=== PATIENT | female | born 1985 | race Hispanic/Latino ===

== ENCOUNTER 2024-06-03 12:20 | Emergency (ER) | payer BC, SELFPAY ==
[2024-06-03 12:26] VITALS: BP 135/79
--- NOTE | 2024-06-03 12:35 | ED.GENMED ---
ED Provider Triage
<Rama Plascencia PA-C - Last Filed: 06/03/24 12:35>
-
Patient seen by provider in Triage?: Seen in Triage
38 y/o F
no pmh\\here wtih dizzines this morning when s he woke up
Feels off balance and like the room is spinning. She has no headache. She feels the symptoms are little bit better than they were when she woke
History of Present Illness
<Rama Plascnecia PA-C - Last Filed: 06/03/24 12:35>
General
Chief Complaint: Dizziness
Time Seen by Provider: 06/03/24 13:34
<Rohith Flaherty PA-C - Last Filed: 06/03/24 16:03>
General
Source: patient
Exam Limitations: none
History of Present Illness
History of Present Illness:
38-year-old otherwise healthy female presents complaining of the onset of dizziness this morning. She woke up with the symptoms. She describes the room spinning with associated mild pressure in her head. No double vision or loss of vision. No
associated neck pain. No unilateral numbness or weakness. She is accompanied by her sister who was diagnosed with MS. There are 2 other people in her family that have MS. Symptoms just started today. She notes recent congestion. No fevers or
rash. No chest pain shortness of breath or vomiting. No other complaints at this time
Phy Exam
<Rohith Flaherty PA-C - Last Filed: 06/03/24 16:03>
Physical Exam
Physical Exam:
General: Well-appearing female no acute respiratory distress
HEENT: Normocephalic pupils equal round reactive to light extraocular motions intact. No obvious nystagmus TMs normal
Heart: Regular rate rhythm no murmurs
Lungs: Clear no wheeze
Neurologic exam: Alert and oriented x 3 finger-nose xprf-ej-[id number] intact conversing appropriate without facial asymmetry dysarthria or aphasia. Alayna-Hallpike does reproduce dizziness when turning head to the right.
Extremities: No cyanosis
Course
<Rama Plascencia PA-C - Last Filed: 06/03/24 12:35>
Orders/Labs/Results
Orders:
Orders
06/03/24 12:32
Meclizine [Antivert] 25 mg PO NOW STA
Test Result ONCE
06/03/24 12:45
COVID-19 Antigen Urgent
Source: Nasal Swab
Complete Blood Count/With Diff Urgent
Comprehensive Metabolic Panel Urgent
HCG, Serum Qualitative Screen Urgent
06/03/24 13:46
CT Head W/o Iv Contrast Urgent
Comment:
Reason For Exam: dizzy
PT Consult [Pt Eval And Treat] Urgent
Treatment: vestibular eval
Activity Level: Ambulate
06/03/24 15:28
Orthostatic VS- Treatment ONCE
06/03/24 15:34
NEUROLOGY CONSULT Urgent
Consulting Provider: Jabari Bautista
Was physician already notified: Yes
Reason for consult: dizziness
06/03/24 15:55
Rizatriptan Orally Disintegrat [Maxalt Felt Carbonizer (Orally Disintegrating)] 10 mg PO ONCE ONE
Abnormal Lab Results
06/03/24
12:45
WBC 4.6 L 10^3/uL
(4.8-10.8)
Hct 35.5 L %
(37.0-47.0)
MPV 10.7 H fL
(7.4-10.4)
Creatinine 0.5 L mg/dL
(0.6-1.0)
AST 50 H U/L
(14-36)
ALT 39 H U/L
(0-35)
Alkaline Phosphatase 175 H U/L
(38-126)
06/03/24 12:45
06/03/24 12:45
Vital Signs
Initial and Last Documented VS:
Initial Vital Signs
Temp Pulse Resp BP Pulse Ox
98.4 F 71 18 135/79 100
06/03/24 12:26 06/03/24 12:26 06/03/24 12:26 06/03/24 12:26 06/03/24 12:26
Last Documented Vital Signs
Temp Pulse Resp BP Pulse Ox
98.4 F 70 18 135/79 99
06/03/24 12:26 06/03/24 14:30 06/03/24 14:30 06/03/24 12:26 06/03/24 14:30
<Rohith Flaherty PA-C - Last Filed: 06/03/24 16:03>
Orders/Labs/Results
Orders:
Orders
06/03/24 12:32
Meclizine [Antivert] 25 mg PO NOW STA
Test Result ONCE
06/03/24 12:45
COVID-19 Antigen Urgent
Source: Nasal Swab
Complete Blood Count/With Diff Urgent
Comprehensive Metabolic Panel Urgent
HCG, Serum Qualitative Screen Urgent
06/03/24 13:46
CT Head W/o Iv Contrast Urgent
Comment:
Reason For Exam: dizzy
PT Consult [Pt Eval And Treat] Urgent
Treatment: vestibular eval
Activity Level: Ambulate
06/03/24 15:28
Orthostatic VS- Treatment ONCE
06/03/24 15:34
NEUROLOGY CONSULT Urgent
Consulting Provider: Jabari Bautista
Was physician already notified: Yes
Reason for consult: dizziness
06/03/24 15:55
Rizatriptan Orally Disintegrat [Maxalt Felt Carbonizer (Orally Disintegrating)] 10 mg PO ONCE ONE
Abnormal Lab Results
06/03/24
12:45
WBC 4.6 L 10^3/uL
(4.8-10.8)
Hct 35.5 L %
(37.0-47.0)
MPV 10.7 H fL
(7.4-10.4)
Creatinine 0.5 L mg/dL
(0.6-1.0)
AST 50 H U/L
(14-36)
ALT 39 H U/L
(0-35)
Alkaline Phosphatase 175 H U/L
(38-126)
06/03/24 12:45
06/03/24 12:45
Vital Signs
Initial and Last Documented VS:
Initial Vital Signs
Temp Pulse Resp BP Pulse Ox
98.4 F 71 18 135/79 100
06/03/24 12:26 06/03/24 12:26 06/03/24 12:26 06/03/24 12:26 06/03/24 12:26
Last Documented Vital Signs
Temp Pulse Resp BP Pulse Ox
98.4 F 70 18 135/79 99
06/03/24 12:26 06/03/24 14:30 06/03/24 14:30 06/03/24 12:26 06/03/24 14:30
<Rohith Flaherty PA-C - Last Filed: 06/03/24 16:03>
MDM/Problems Addressed
Differential Diagnosis Includes:
Dizziness. Consider vertigo versus labyrinthitis versus electrolyte abnormality. CT pending. Check labs. Will consult physical therapy for vestibular eval
<Rohith Flaherty PA-C - Last Filed: 06/03/24 16:03>
*Critical Care Note
Total Time (30-74mins, 75-104mins- exclusive of procedures): Not Applicable
<Rohith Flaherty PA-C - Last Filed: 06/03/24 16:03>
Update Note
Update Note:
Patient seen and evaluated by neurology as well as physical therapy. Physical therapy not able to elicit significant amount of vertigo or dizziness. Seen by neurology who feels that this is more BPPV. Will discharge home with vestibular therapy
script and meclizine.
ED Attending Note
<Rama Plascencia PA-C - Last Filed: 06/03/24 12:35>
-
Portions of this chart may have been created with voice recognition software.� Occasional wrong word or��sound alike� substitutions may have occurred due to the inherent limitations of voice recognition software.
Discharge Plan
Departure
Patient Disposition: Home (Routine Discharge)
Date of Disposition: 06/03/24
Time of Disposition: 16:00
Patient with high blood pressure during this ER visit?: No
Discharge Problem:
Vertigo
Instructions: Vertigo (a Type of Dizziness) (DC)
Prescriptions:
New
meclizine 25 mg tablet
25 mg PO TID PRN (Reason: dizziness) Qty: 10 0RF
Referrals:
Ceci Altamirano CRNP [Family Provider] -
Activity Restrictions/Additional Instructions:
Urgency use meclizine if needed for dizziness. Return here for worsening symptoms otherwise follow-up with your doctor. Consider vestibular rehab for dizziness
Interventions
Interventions:
*Risk Screen - Suicide Last Done: 06/03/24 12:29
*General Assessment Last Done: 06/03/24 12:29
*Neglect/Abuse Screening Last Done: 06/03/24 12:29
ED- Fall Risk Assessment Last Done: 06/03/24 13:26
*ED COVID-19 Vaccine History Last Done: 06/03/24 12:33
ED- Neurological Assessment Last Done: 06/03/24 13:26
ED- Cardiac Assessment Last Done: 06/03/24 13:26
ED Swallowing Screen Last Done: 06/03/24 13:26
Discharge Date and Time
Print Language: UPPER SORBIAN
[2024-06-03 13:06] LABS: % Basophils 0.4 % (0-2); % Eosinophils 0.4 % (0-6); % Immature Granulocytes 0.4 % (0-0.5); % Lymphocytes 30.5 % (20.5-51.1); % Neutrophils 61.3 % (42.2-75.2); Absolute Lymphocytes 1.4 10^3/uL (1.2-3.4); Absolute Monocytes 0.3 10^3/uL (0.1-0.6); Absolute Neutrophils 2.8 10^3/uL (1.4-6.5); Hematocrit 35.5 % (37.0-47.0); Mean Corp Hgb Conc. 33.8 g/dL (33.0-37.0); Mean Corpuscular Volume 82.8 fL (81.0-99.0); Mean Platelet Volume 10.7 fL (7.4-10.4); Nucleated Red Blood Cells % 0 %; Platelet Count 163 10^3/uL (130-400); Red Blood Cell Count 4.29 10^6/uL (4.20-5.40); Red Cell Dist. Width 13.4 % (11.5-14.5); White Blood Cell Count 4.6 10^3/uL (4.8-10.8)
[2024-06-03 13:17] LABS: COVID-19 Antigen Negative (Negative)
[2024-06-03 13:18] LABS: HCG, Serum Qualitative Screen Negative
[2024-06-03 13:20] LABS: ALT (SGPT) 39 U/L (0-35); AST (SGOT) 50 U/L (14-36); Albumin 4.2 g/dl (3.5-5.0); Alkaline Phosphatase 175 U/L (38-126); Blood Urea Nitrogen 12 mg/dl (7-17); Calcium 8.5 mg/dl (8.4-10.2); Carbon Dioxide 25 mmol/L (22-30); Chloride 106 mmol/L (98-107); Glucose 84 mg/dl (70-99); Potassium 4.1 mmol/L (3.5-5.1); Sodium 141 mmol/L (135-145); Total Bilirubin 0.4 mg/dl (0.2-1.3); Total Protein 7.1 g/dl (6.3-8.2); eGFR > 60.00
[2024-06-03 13:26] VITALS: BMI 30.9
[2024-06-03] MEDS: ANTIVERT 25 MG PO (13:29)
--- NOTE | 2024-06-03 15:38 | CON.NEURO ---
Neuro Assessment/Plan
Assessment
Acute onset dizziness
Differential diagnosis includes BPPV involving the right labyrinth, migraine with aura
The patient's longstanding recurrent headaches suggest a migrainous etiology. The patient's 4-month history of sense of if bending forward suggested a vertiginous etiology
Plan
Provide rizatriptan due to patient's mild headache and persistent mild symptoms
Continue vestibular exercises
Meclizine as needed
Consider as outpatient initiation of amitriptyline for head discomfort
Continue vitamin D replacement
Will follow as needed.
Consultation
Order
Date of Consultation: 06/03/24
Requesting Provider: Emergency department provider
Reason for Consult: Vertigo
Subjective/Objective
Subjective Data
Date of Service: June 03, 2024
Right-Handed
Previous episodes every other week have been with bending forwards since 01/2024 lasting for few moments, no nausea.
Walking on the way to bathroom in AM. Feels internal spinning and jittery. Also experiencing nausea. Also patient felt difficulty with spelling and comprehend. Worse with bending forward.
Symptoms have improved, can reproduce with movement to the right. Physical therapy manipulation today, no improvement. Medications in the ED has improved symptoms. Started to have headache in past few minutes. Headaches 2-3x/week usually. Also
headaches with menses, may last 2 days. Acetaminophen previously. Typical continuous photosensitivity. Headache worsen with loud sounds.
Objective Data
Vital Signs
Temp Pulse Resp BP Pulse Ox
36.9 C 70 18 135/79 99
06/03/24 12:26 06/03/24 14:30 06/03/24 14:30 06/03/24 12:26 06/03/24 14:30
Lab Results
06/03/24 12:45
06/03/24 12:45
Sodium 141 mmol/L (135-145) 11/26/24 12:45
Potassium 4.1 mmol/L (3.5-5.1) 06/03/24 12:45
BUN 12 mg/dl (7-17) 06/03/24 12:45
Glucose 84 mg/dl (70-99) 06/03/24 12:45
Calcium 8.5 mg/dl (8.4-10.2) 06/03/24 12:45
Patient Allergies
No Known Allergies Allergy (Unverified 06/03/24 12:29)
Review of Systems
-
History Source: Patient
All other systems: Reviewed and negative
EENT: Tinnitis (Chronic); Negative Hearing Loss or Swallowing Difficulty
Respiratory: Negative Trouble Breathing
Cardiac: Negative Chest Pain
Abdomen/GI: Negative Incontinence of Stool
Genitourinary: Negative Incontinence
Musculoskeletal: Negative Back Pain or Neck Pain
Neuro: Dizzy and Headache
Physical Exam
-
General: No Apparent Distress and Appears Stated Age
Eyes: OU Absent Papilledema, Round OU, [place] Conjunctivae and No Ptosis
HEENT: Anicteric and Moist Mucous Membranes
Neck: Full Range of Motion
Respiratory: No Dyspnea
Cardiac: No JVD
GI: Non-distended
Skin: Unremarkable
Extremities: No Clubbing, No Cyanosis and No Edema
Psych: Intact Judgement/Insight
Extended Neurological Exam
Mood & Affect: Mood Unremarkable and Affect Unremarkable
Attention Span & Concentration: Awake, Alert, Interactive and No Difficulty with 2 Step Request
Memory: Unremarkable
Tremor: Hand Tremor Absent and Head Tremor Absent
Speech: Quality Unremarkable and Quantity Unremarkable
Cranial Nerve II: Left Eye: Pupillary Reactivity Unremarkable, Pupillary Size Unremarkable and Visual Cantu Intact
Cranial Nerve II: Right Eye: Pupillary Reactivity Unremarkable, Pupillary Size Unremarkable and Visual Cantu Intact
Cranial Nerves III, IV, : Extraocular Movement: Extraocular Movement Full in all Directions; Negative Nystagmus with Extreme Gaze to Left or Nystagmus with Extreme Gaze to Right
Cranial Nerve VII: Facial Symmetry: Normal Facial Symmetry
Cranial Nerve VIII: Hearing: Unremarkable Hearing to Normal Conversational Volume and Other (Normal hearing to rubbing fingers; negative hints testing)
Cranial Nerves IX, X: Palate Movement: Palate Elevation Symmetric
Cranial Nerve XI: Shoulder Shrug: Unremarkable
Cranial Nerve XII: Tongue Protusion: Midline
Muscle Strength, Overall: Full Throughout
Muscle Bulk & Tone: Bulk Unremarkable and Tone Unremarkable
Pronator Drift: No Drift in Upper Extremities
Deep Tendon Reflexes: Unremarkable Throughout
Touch Sensation: Unremarkable
Coordination: [id number] Testing Unremarkable
Babinski Sign: Absent Bilaterally
Data Reviewed
-
Labs: Report Reviewed
Reviewed with: Nurse Practioner and Patient
Old Records: Summarized
Past History
Past History
ED Past Medical History: Other (pancreatic cysts, low iron level, vitamin D deficiency)
ED Past Surgical History: Cholecystectomy, Gynecological () and Other (weight loss surgery, wrist cyst)
Social History
Tobacco: Non-smoker
Alcohol: Occasional
Drug: Marijuana
Personal:
Living: with family
Employment: Employed
Family History
Family History: Other (reviewed and non-contributory except for MS in multiple family members)
[2024-06-03 16:06] VITALS: BP 113/53
[2024-06-03 16:08] VITALS: BP 125/67
[2024-06-03 16:09] VITALS: BP 127/76
[2024-06-03 16:11] VITALS: BP 113/53; BP 125/67; BP 127/76; PULSE 62; PULSE 65; PULSE 75
[2024-06-03] MEDS: MAXALT MLT (ORALLY DISINTEGRATING) 10 MG PO (16:16)
== END 2024-06-03 16:20 | disposition home or self-care (01) ==
LOC: EMR 12:20
PROVIDERS: Physician Assistant; CONSULT PHYSICIAN Psychiatry & Neurology Neurology; EMERGENCY PHYSICIAN Emergency Medicine; FAMILY PHYSICIAN Nurse Practitioner Family
DX: R42 Dizziness and giddiness (principal); Z90.49 Acquired absence of other specified parts of digestive tract
CPT/HCPCS: 99284; 70450; 80053; 84703; 85025; 87811

== ENCOUNTER 2025-01-15 20:21 | Emergency (ER) | payer BC, SELFPAY ==
[2025-01-15 20:35] VITALS: BP 133/84
--- NOTE | 2025-01-15 23:21 | ED.GENMED ---
History of Present Illness
General
Chief Complaint: Musculo-Skeletal Complaint
Time Seen by Provider: 01/15/25 23:21
History of Present Illness
History of Present Illness:
TIME OF INITIAL EVALUATION
- 11:30 PM
REVIEW OF OLD RECORDS
- The patient is otherwise fairly healthy. She was seen here in May 2024 diagnosed with vertigo seen by neurology at that time.
Note:
CHIEF COMPLAINT(S)
Neck pain radiating to the arm with associated numbness and weakness.
HISTORY OF PRESENT ILLNESS
The patient is a 39-year-old female who presents with neck pain that began approximately six weeks ago. The pain was localized to the posterior aspect of the neck, primarily on the right side, and occasionally extended into the right shoulder.
Initially, there was no preceding trauma. Two weeks after the onset of symptoms, the patient consulted her primary care physician and was prescribed a five-day course of a Medrol Dose Pack (methylprednisolone) and instructed to take acetaminophen.
The patient reported partial relief towards the end of the steroid course. Subsequently, she visited an urgent care facility, where cervical spine radiography was performed, and she was prescribed a muscle relaxant. The combination of steroids and
muscle relaxants provided temporary relief.
The neck pain resolved but was soon followed by a new onset of shooting pain radiating down the right arm, accompanied by numbness and tingling sensations. The patient currently experiences worsening neck pain and reports progressive weakness,
particularly when the arm enters a state of numbness. She denies any recent fever or bowel or bladder dysfunction. The patient has also tried physical therapy.
EXTERNAL RECORDS REVIEWED
A cervical spine X-ray was performed at an urgent care facility.
REVIEW OF SYSTEMS
- Musculoskeletal: Radiating neck pain to the arm, weakness in the right arm
- Neurological: Numbness and tingling in the right arm
- General: No recent fevers reported
PHYSICAL EXAM
- Neurological Exam: Radial, median, and ulnar nerves appear intact; however, subjective reports of weakness, particularly during episodes of numbness, were noted. Sensation is intact
- General: Well appearing but appears to be somewhat uncomfortable
- HEENT: Moist oral mucosa
- Cardiovascular: No murmurs, normal heart rate, regular rhythm, No chest wall tenderness
- Pulmonary: No respiratory distress, breath sounds are clear and equal
- Abdomen: Soft with no peritoneal signs, no tenderness
- Psychiatric: Appropriate mental status, normal insight and judgement
- Extremities: Decreased active range of motion of the right upper extremity related to pain at the posterior neck
- Skin: No rash, no lesions
PLAN
- Administer a toradol (ketorolac tromethamine) injection as a non-narcotic anti-inflammatory treatment.
- Offer a short course of Percocet (oxycodone/acetaminophen) for immediate pain relief.
- Provide patient with a soft cervical collar to alleviate symptoms associated with neck heaviness.
- Recommend resuming a course of steroid therapy with methylprednisolone.
- Encourage patient to follow up with spine specialists and offer referrals.
- Advise continued consultation with the primary care physician for consideration of MRI if symptoms persist or worsen.
DIFFERENTIAL DIAGNOSIS
The Differential Diagnosis includes, in no particular order and is not limited to:
1. Cervical radiculopathy
2. Cervical spinal stenosis
3. Herniated cervical disc
4. Cervical spondylosis
5. Brachial plexopathy
6. Thoracic outlet syndrome
7. Multiple sclerosis
8. Peripheral neuropathy
9. Myelopathy
10. Lyme disease
RADIOLOGY
- No clear indication for imaging at this time
EKG
- Not indicated
LABS
- Not indicated
UPDATE
-SUMMARY OF ENCOUNTER
The patient was seen in the emergency department for neck pain radiating to the arm with associated numbness and weakness. The patients symptoms are suspected to be due to a pinched nerve. Management in the emergency department included
administering a toradol (ketorolac) injection for pain relief and prescribing a short course of Percocet (oxycodone/acetaminophen) for immediate pain management. A higher dose steroid treatment with prednisone is also prescribed to reduce
inflammation. The plan involves continuing to manage symptoms while consulting spine specialists for further evaluation if necessary.
PLAN
Administer a toradol (ketorolac tromethamine) injection as a non-narcotic anti-inflammatory treatment. Prescribe a short course of Percocet (oxycodone/acetaminophen) for immediate pain relief. Provide a prescription for prednisone at a higher dose
than the previous Medrol Dose Pack. Encourage follow-up with spine specialists, including potential consultations with a neurosurgeon or health promotion specialist. Recommend ongoing monitoring of symptoms and possible consideration of MRI if symptoms
persist or worsen.
FOLLOW-UP INSTRUCTIONS
Contact the office of local spine specialists, including neurosurgeons and orthopedic doctors, to schedule follow-up appointments. Discuss past treatment attempts and ongoing symptoms with these specialists to explore further management options.
MEDICATION RECONCILIATION
A prescription for prednisone is provided, and a short course of Percocet (oxycodone/acetaminophen) is offered for pain relief.
MEDICAL DECISION MAKING
1. Number and Complexity of Problems Addressed: Chronic conditions affecting care include cervical radiculopathy, cervical spinal stenosis, herniated cervical disc, cervical spondylosis, brachial plexopathy, thoracic outlet syndrome, multiple
sclerosis, peripheral neuropathy, myelopathy, Lyme disease.
2. Data:
Category 1: Non-emergency department records reviewed, including external records from a previous cervical spine X-ray.
Category 3: Discussion of management with spine specialists, including potential consultation with neurosurgeons or orthopedic specialists.
3. Risk: Prescription medication was prescribed with prednisone and Percocet (oxycodone/acetaminophen) for pain management. Consideration of further escalation of care, such as MRI and consultation with specialists, emphasizes a careful approach to
managing the patients condition. Although surgery is considered a last resort, the patient is guided to consult specialists for further evaluation and management.
DIAGNOSIS
Suspected pinched nerve causing neck pain and radiculopathy; ICD-10: M54.2 Cervicalgia, M54.12 Radiculopathy, cervical region.
I have given the patient contact information for Dr. Reyna as well as for pain management with orthopedics.
Past History
Past History
ED Past Medical History: Other (pancreatic cysts, low iron level, vitamin D deficiency)
ED Past Surgical History: Cholecystectomy, Gynecological () and Other (weight loss surgery, wrist cyst)
Social History
Tobacco: Non-smoker
Alcohol: Occasional
Drug: Marijuana
Personal:
Living: with family
Employment: Employed
Family History
Family History: Other (reviewed and non-contributory except for MS in multiple family members)
Phy Exam
Physical Exam
Physical Exam:
See HPI
Course
Orders/Labs/Results
Orders:
Orders
01/16/25 00:01
Ketorolac [Toradol] 30 mg IM NOW STA
Oxycodone/Acetaminophen [Percocet 5/325] 2 tablet PO NOW STA
Prednisone [Deltasone] 50 mg PO NOW STA
Vital Signs
Initial and Last Documented VS:
Initial Vital Signs
Temp Pulse Resp BP Pulse Ox
37.0 C 77 16 133/84 100
01/15/25 20:35 01/15/25 20:35 01/15/25 20:35 01/15/25 20:35 01/15/25 20:35
Last Documented Vital Signs
Temp Pulse Resp BP Pulse Ox
37.0 C 77 16 133/84 100
01/15/25 20:35 01/15/25 20:35 01/15/25 20:35 01/15/25 20:35 01/15/25 23:22
*Pulse Oximetry
SaO2: 100
Oxygen Mode of Delivery: Room air
Patient hypoxic: no
*Critical Care Note
Total Time (30-74mins, 75-104mins- exclusive of procedures): Not Applicable
ED Attending Note
-
Portions of this chart may have been created with voice recognition software.� Occasional wrong word or��sound alike� substitutions may have occurred due to the inherent limitations of voice recognition software.
Discharge Plan
Departure
Patient Disposition: Home (Routine Discharge)
Date of Disposition: 01/16/25
Time of Disposition: 01:05
Patient with high blood pressure during this ER visit?: Yes
Discharge Problem:
Cervical radiculopathy
Instructions: Radiculopathy of the neck and back (including sciatica), BLOOD PRESSURE
Prescriptions:
New
prednisone 50 mg tablet
50 mg PO DAILY Qty: 4 0RF
oxycodone-acetaminophen [Percocet] 5-325 mg tablet
1 - 2 tab PO Q8H PRN (Reason: Pain) Qty: 14 0RF
No Action
meclizine 25 mg tablet
25 mg PO TID PRN (Reason: dizziness) Qty: 10 0RF
Referrals:
Edmundo Hebert, [Non-Admitting Privileges, Orthopedics]
Ceci Altamirano CRNP [Family Provider]
Fabiola Reyna MD [Active, Neurosurgery]
Activity Restrictions/Additional Instructions:
I am sending a prescription for a few days of narcotic to help with your pain. I am also sending a prescription for prednisone (a steroid) over the neck several days as well. I have given you the contact information for a neurosurgeon (Dr. Reyna),
I have also given the contact information for a painter touch up with orthopedics, Dr. Hebert.
Interventions
Interventions:
*Risk Screen - Suicide Last Done: 01/15/25 20:35
*Neglect/Abuse Screening Last Done: 01/15/25 20:35
ED-Musculoskeletal Assessment Last Done: 01/16/25 00:17
Discharge Date and Time
Print Language: [place]
[2025-01-16] MEDS: PERCOCET 5/325 2 TABLET PO (00:08)
[2025-01-16] MEDS: TORADOL 30 MG IM (00:08)
[2025-01-16] MEDS: DELTASONE 50 MG PO (00:08)
[2025-01-16 01:20] VITALS: BP 135/85
== END 2025-01-16 01:28 | disposition home or self-care (01) ==
LOC: EMR 20:21
PROVIDERS: EMERGENCY PHYSICIAN Emergency Medicine; FAMILY PHYSICIAN Nurse Practitioner Family
DX: M54.12 Radiculopathy, cervical region (principal)
CPT/HCPCS: 96372; 99284